=== PATIENT | male | born 1970 | race Caucasian/White ===

== ENCOUNTER 2018-02-10 11:48 | Inpatient (IN) | END 2018-02-12 15:03 | disposition home or self-care (01) | DRG 519 ==

== ENCOUNTER 2018-08-26 16:48 | Emergency (ER) | payer OTHER ==
[~2018-08-26] VITALS: Ht 175.3 cm; Wt 122.0 kg
[~2018-08-26 16:48] MED LIST: AMLO-147 PO; ATOR40TA68 PO; CARV25TA79 PO; CLON0.3T PO; FURO40TA4 PO; SPIR25TA PO; VALS320T2 PO
[2018-08-26 17:18] VITALS: Ht 175.3 cm; Wt 122.0 kg
[2018-08-26] MEDS ORDERED: ONDANSETRON (ODT) 4 MG TAB ODT STA (18:03)
[2018-08-26] MEDS ORDERED: KETOROLAC 30 MG INJ IM STA (18:03)
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
[2018-08-26] MEDS ORDERED: NAPR-985 PO (21:10)
[2018-08-26 21:18] VITALS: BP 145/70; PULSE 78; RESP 16
== END 2018-08-26 21:19 | disposition home or self-care (01) ==
LOC: FTE 16:48
DX: R10.9 Unspecified abdominal pain (principal); I10 Essential (primary) hypertension; E66.01 Morbid (severe) obesity due to excess calories; Z87.891 Personal history of nicotine dependence
CPT/HCPCS: 36415; 74176; 80053; 81001; 85025; 96372; 99285; J1885